=== PATIENT | female | born 1970 | race Two or more races ===

== ENCOUNTER 2024-02-09 13:58 | Emergency (ER) | payer OTHER ==
[~2024-02-09] VITALS: Ht 160 cm; Wt 68.0 kg
[2024-02-09] MEDS ORDERED: TRAZODONE HCL50 MG (14:14)
[2024-02-09] MEDS ORDERED: BUPROPION XL300 MG (14:14)
[2024-02-09 14:15] VITALS: BP 109/79; O2SAT 96
[2024-02-09] MEDS ORDERED: CEFTRIAXONE SODIUM 1,000 MG VIAL IV ONE (16:30)
[2024-02-09] MEDS ORDERED: METHYLPREDNISOLONE SOD SUCC 40 MG VIAL IV ONE (16:30)
[2024-02-09] MEDS ORDERED: KETOROLAC TROMETHAMINE 60 MG VIAL IM ONE ×2 (16:30→17:09)
[2024-02-09] MEDS ORDERED: CEFTRIAXONE SODIUM 1,000 MG VIAL ONE (17:10)
[2024-02-09] MEDS ORDERED: METHYLPREDNISOLONE SOD SUCC 40 MG VIAL ONE (17:10)
[2024-02-09 17:31] LABS: HEMATOCRIT 39.5 % (36.0-45.00); HEMOGLOBIN 13.6 g/dL (12.0-15.00); MEAN CELL VOLUME 88.5 fL (80.00-100.00); MEAN CORPUSCULAR HEMOGLOBIN 30.5 pg (27.00-32.0); MEAN CORPUSCULAR HGB CONC 34.4 g/dl (32.0-36.0); PLATELET COUNT 240 K/uL (150-450); RED BLOOD COUNT 4.47 M/uL (4.00-6.00); RED CELL DISTRIBUTION WIDTH 14.1 % (11.5-14.5)
[2024-02-09 17:58] LABS: ERYTHROCYTE SEDIMENTATION RATE 7 mm/hr
[2024-02-09 18:20] LABS: ALBUMIN 3.7 gm/dL (3.4-5.0); BILIRUBIN TOTAL 0.29 mg/dL (0.3-1.2); CALCIUM 9.1 mg/dL (8.5-10.1); CREATININE SERUM 0.99 mg/dL (0.55-1.02); GFR 58.9; GLOBULINA 3.4 G/DL (2.4-3.5); POTASSIUM 3.87 mEq/L (3.5-5.1); TOTAL PROTEIN 7.1 gm/dL (6.4-8.2)
[2024-02-09 18:30] LABS: C-REACTIVE PROTEIN 2.84 MG/DL (0.00-0.29)
[2024-02-09] MEDS ORDERED: PEPCID AC20 MG PO (18:34)
[2024-02-09] MEDS ORDERED: CEPHALEXIN750 MG PO (18:34)
== END 2024-02-09 18:57 | disposition home or self-care (01) ==
LOC: ER 14:00
PROVIDERS: General Practice
DX: L55.9 Sunburn, unspecified (principal); Z91.018 Allergy to other foods
CPT/HCPCS: 36415; 73590; 96365; 96372; 99283; J0696; J1885; J3490